=== PATIENT | female | born 1950 | race Caucasian/White ===

== ENCOUNTER → 2016-11-17 | Day surgery (SDC) | payer MEDICARE, OTHER ==
[~2016-11-17] MED LIST: FAMOTIDINE40 MG PO; FISH OIL 1,0001 EAC1 PO; HYDROCHLOROTHIA25 MG PO; IRBESARTAN300 MG PO; IRON325 M1 PO; JANUVIA 100 MG100 MG PO; LORATADINE10 MG PO; METFORMIN HCL1000 MG PO; NORVASC 5 MG TAB5 MG PO; PHENERGAN 25 MG25 M1 PO; PIROXICAM20 MG PO; TESSALON PERLE100 MG PO; TRAMADOL HCL50 MG PO; TYLENOL 500 MG500 MG PO; VITAMIN B-121000 MCG SL
== END | disposition home or self-care (01) ==
LOC: OR 08:12
PROVIDERS: Internal Medicine Gastroenterology
PROC: 0DB68ZX Excision of Stomach, Via Natural or Artificial Opening Endoscopic, Diagnostic (ICD-10-PCS; principal; 2016-11-17 12:45)
PROC: 0DBL8ZZ Excision of Transverse Colon, Via Natural or Artificial Opening Endoscopic (ICD-10-PCS; 2016-11-17 12:45)
DX: D12.3 Benign neoplasm of transverse colon (principal); K29.50 Unspecified chronic gastritis without bleeding; K44.9 Diaphragmatic hernia without obstruction or gangrene; K57.30 Diverticulosis of large intestine without perforation or abscess without bleeding; K64.0 First degree hemorrhoids; D50.9 Iron deficiency anemia, unspecified; E66.01 Morbid (severe) obesity due to excess calories; E11.9 Type 2 diabetes mellitus without complications; I10 Essential (primary) hypertension; M19.90 Unspecified osteoarthritis, unspecified site; M79.7 Fibromyalgia; Z88.8 Allergy status to other drugs, medicaments and biological substances; Z79.899 Other long term (current) drug therapy; Z90.49 Acquired absence of other specified parts of digestive tract; Z82.49 Family history of ischemic heart disease and other diseases of the circulatory system; Z83.3 Family history of diabetes mellitus; Z82.3 Family history of stroke
CPT/HCPCS: 82962; J2250; J7030

== ENCOUNTER → 2021-02-03 | Outpatient (CLI) | payer MEDICARE, OTHER ==
[~2021-02-03] MED LIST changes: +ACID CONTROLLER20 MG PO; +ALDACTONE 25MG25 MG PO; +ASPIRIN CHEWABL81 MG PO; +BRILINTA90 MG PO; +COLACE100 MG PO; +ELAVIL 25 MG TA25 MG PO; +LANTUS100 UNIT/1 SC; +LANTUS100 UNIT/1 SQ; +LIPITOR10 MG PO; +LOSARTAN POTAS100 MG PO; +MIRALAX17 GM PO; +PROTONIX 40 MG40 M1 PO; +TOPROL XL 25 MG25 MG PO; +ZETIA 10 MG TAB10 MG PO
== END ==
LOC: ECHO 01-15 10:00 → HEART 5 13:38
DX: I25.10 Atherosclerotic heart disease of native coronary artery without angina pectoris (principal); I50.9 Heart failure, unspecified; I50.20 Unspecified systolic (congestive) heart failure; I50.30 Unspecified diastolic (congestive) heart failure
CPT/HCPCS: 93306

== ENCOUNTER → 2021-02-18 | Outpatient (CLI) | payer MEDICARE ==
[2021-02-18 08:37] LABS: HEMOGLOBIN 10.9 gm/dl (12.3-15.3); RED BLOOD COUNT 3.59 M/UL (4.00-5.10); WHITE BLOOD COUNT 9.6 K/UL (4.5-11.0)
== END ==
LOC: LAB 08:00
PROVIDERS: Internal Medicine Cardiovascular Disease
DX: I25.10 Atherosclerotic heart disease of native coronary artery without angina pectoris (principal)
CPT/HCPCS: 80053; 80061; 85025

== ENCOUNTER → 2021-09-20 | Outpatient (CLI) | payer MEDICARE | LOC: KOH-I 12:55 | DX: N18.32 Chronic kidney disease, stage 3b (principal) | CPT/HCPCS: 76775 ==